=== PATIENT | male | born 1995 | race Two or more races ===

== ENCOUNTER 2019-01-04 18:58 | Emergency (ER) | payer SELFPAY ==
[2019-01-04] MEDS ORDERED: Diphtheria,Pertussis(Acell),Tetanus Vaccine 0.5 ML Syringe IM ONE (19:23)
--- NOTE | 2019-01-04 19:33 | EDM.PDOC ---
ED HPI GENERAL MEDICAL PROBLEM - General Chief Complaint: Upper Extremity Injury/Pain Stated Complaint: SPLINTER IN LT THUMB W/SWELLING Time Seen by Provider: 01/04/19 19:11 Source of Information: Reports: Patient History Limitations: Reports: No Limitations - History of Present Illness INITIAL COMMENTS - FREE TEXT/NARRATIVE: HISTORY AND PHYSICAL: History of present illness: Patient is a 23-year-old male presents to the ED today with concern of a puncture injury to his left hand that occurred 3 days ago at work. Patient states he was working with blood that got slammed into his hand. Patient states a large sliver went into his hand and has stayed in there since. Patient states starting today he has noticed some swelling and redness where the puncture site is. Patient states he does have full range of motion of all digits and wrist of the extremity. Patient states he has not taken anything for his symptoms and has not tried to remove the object in his hand. Patient states he is not up-to-date on his vaccinations. Patient denies fever, chills, chest pain, shortness of breath, or cough. Denies headache, neck stiff ness, change in vision, syncope, or near syncope. Denies nausea, vomiting, abdominal pain, diarrhea, constipation, or dysuria. Has not noted any blood in urine or stool. Patient has been eating and drinking appropriately. Review of systems: As per history of present illness and below otherwise all systems reviewed and negative. Past medical history: As per history of present illness and as reviewed below otherwise noncontributory. Surgical history: As per history of present illness and as reviewed below otherwise noncontributory. Social history: See social history for further information Family history: As per history of present illness and as reviewed below otherwise noncontributory. Physical exam: General: Patient is alert, oriented, and in no acute distress. Patient sitting comfortably on exam table. HEENT: Atraumatic, normocephalic, pupils equal and reactive bilaterally, negative for conjunctival pallor or scleral icterus, mucous membranes moist, TMs normal bilaterally, throat clear, neck supple, nontender, trachea midline. No drooling or trismus noted. No meningeal signs. No hot potato voice noted. Lungs: Clear to auscultation, breath sounds equal bilaterally, chest nontender. Heart: S1S2, regular rate and rhythm without overt murmur Abdomen: Soft, nondistended, nontender. Negative for masses or hepatosplenomegaly. Negative for costovertebral tenderness. Pelvis: Stable nontender. Genitourinary: Deferred. Rectal: Deferred. Skin: Intact, warm, dry. No lesions or rashes noted. Extremities: Atraumatic, negative for cords or calf pain. Neurovascular unremarkable. There is a puncture site on the thenar muscle with surrounding erythema of approximately 3 cm circumferentially. The area is mildly edematous. Patient does have full range of motion/strength of all digits and wrist on the hand. Radial pulses grossly intact. Capillary refill less than 2 seconds Neuro: Awake, alert, oriented. Cranial nerves II through XII unremarkable. Cerebellum unremarkable. Motor and sensory unremarkable throughout. Exam nonfocal. Notes: Dr. Lai directly involved in patient care. Appointment tomorrow with hand specialist, Dr. Nix, generated today. Voices understanding and is agreeable to plan of care. Denies any further questions or concerns at this time. Diagnostics: hand XR Therapeutics: tdap Prescription: Bactrim DS Impression: Hand foreign body/injury Plan:1. Take antibiotics as prescribed. Alternate ibuprofen and Tylenol as directed for pain and discomfort. 2. Follow-up with the hand specialist tomorrow as discussed and as scheduled. 3. Return to the ED as needed and as discussed. Definitive disposition and diagnosis as appropriate pending reevaluation and review of above. left hand Pain Score (Numeric/FACES): 5 - Related Data Allergies Allergy/AdvReac Type Severity Reaction Status Date / Time No Known Allergies Allergy Verified 01/04/19 19:14 Home Meds: Home Meds . [No Known Home Meds] 01/04/19 [History] Past Medical History - Past Surgical History Cardiovascular Surgical History: Reports: Other (See Below) Other Cardiovascular Surgeries/Procedures: chest sx Social & Family History - Family History Family Medical History: Noncontributory - Tobacco Use Smoking Status *Q: Never Smoker - Recreational Drug Use Recreational Drug Use: No Review of Systems - Review of Systems Review Of Systems: ROS reveals no pertinent complaints other than HPI. ED EXAM, GENERAL - Physical Exam Exam: See Below (see dictation) Course - Vital Signs Last Recorded V/S: Last Vital Signs Temp 36.4 C 01/04/19 19:05 Pulse 83 01/04/19 19:05 Resp 18 01/04/19 19:05 BP 133/78 01/04/19 19:05 Pulse Ox 97 01/04/19 19:05 - Orders/Labs/Meds Orders: Active Orders 24 hr Category Date Time Status Vaccines to be Administered [RC] PER UNIT ROUTINE Care 01/04/19 19:23 Active Meds: Medications Discontinued Medications Generic Name Dose Route Start Last Admin Trade Name Freq PRN Reason Stop Dose Admin Diphtheria/Tetanus/Acell Pertussis 0.5 ml 01/04/19 19:23 01/04/19 19:39 Adacel IM 01/04/19 19:24 0.5 ml .ONCE ONE Administration Departure - Departure Time of Disposition: 19:56 Disposition: Home, Self-Care 01 Clinical Impression: Foreign body hand Qualifiers: Encounter type: initial encounter Laterality: left Qualified Code(s): S60.552A - Superficial foreign body of left hand, initial encounter Hand injury Qualifiers: Encounter type: initial encounter Laterality: left Qualified Code(s): S69.92XA - Unspecified injury of left wrist, hand and finger(s), initial encounter - Discharge Information Referrals: PCP,None [Primary Care Provider] - Forms: ED Department Discharge Additional Instructions: The following information is given to patients seen in the emergency department who are being discharged to home. This information is to outline your options for follow-up care. We provide all patients seen in our emergency department with a follow-up referral. The need for follow-up, as well as the timing and circumstances, are variable depending upon the specifics of your emergency department visit. If you don't have a primary care physician on staff, we will provide you with a referral. We always advise you to contact your personal physician following an emergency department visit to inform them of the circumstance of the visit and for follow-up with them and/or the need for any referrals to a consulting specialist. The emergency department will also refer you to a specialist when appropriate. This referral assures that you have the opportunity for follow-up care with a specialist. All of these measure are taken in an effort to provide you with optimal care, which includes your follow-up. Under all circumstances we always encourage you to contact your private physician who remains a resource for coordinating your care. When calling for follow-up care, please make the office aware that this follow-up is from your recent emergency room visit. If for any reason you are refused follow-up, please contact the [facility] Emergency Department at and asked to speak to the emergency department charge nurse. [facility] [address] [place] [address] [address] [facility] [address] [facility], [address] [place] [address] 1. Take antibiotics as prescribed. Alternate ibuprofen and Tylenol as directed for pain and discomfort. 2. Follow-up with the hand specialist tomorrow as discussed and as scheduled. 3. Return to the ED as needed and as discussed. - My Orders Last 24 Hours: My Active Orders 01/04/19 19:23 Vaccines to be Administered [RC] PER UNIT ROUTINE - Assessment/Plan Last 24 Hours: My Active Orders 01/04/19 19:23 Vaccines to be Administered [RC] PER UNIT ROUTINE
--- NOTE | 2019-01-04 19:43 | CR ---
Indication: Wooden splinter, base of thumb on inside of hand. Redness and swelling. Technique: Three views of the left hand were obtained. Comparison: None Findings: No acute fracture or subluxation is identified. The joint spaces are well maintained. No radiopaque foreign body identified. Impression: No radiopaque foreign body identified. Dictated by Sindi López MD @ Jan 04 2019 7:40PM Signed by Dr. Sindi López @ Jan 04 2019 7:41PM
== END 2019-01-04 20:11 | disposition home or self-care (01) ==
LOC: MW.ED 18:58
DX: S61.442A Puncture wound with foreign body of left hand, initial encounter (principal); W45.8XXA Other foreign body or object entering through skin, initial encounter; Z23 Encounter for immunization
CPT/HCPCS: 73130-26-LT; 73130-LT; 90471; 90715; 99283; 99283-25